=== PATIENT | female | born 1955 | race Two or more races ===

== ENCOUNTER 2022-06-05 06:10 | Day surgery (SDC) | payer OTHER | END 2022-06-05 10:55 | disposition home or self-care (01) | LOC: CIR.AMB 06:10 | PROVIDERS: ATTEND Surgery | DX: D12.2 Benign neoplasm of ascending colon (principal); D12.3 Benign neoplasm of transverse colon; K57.30 Diverticulosis of large intestine without perforation or abscess without bleeding; Z20.822 Contact with and (suspected) exposure to COVID-19 ==